=== PATIENT | female | born 1940 | race Two or more races ===

== ENCOUNTER → 2019-04-24 | Outpatient (CLI) | payer OTHER | END | disposition home or self-care (01) | LOC: RAD 13:57 | DX: M12.851 Other specific arthropathies, not elsewhere classified, right hip (principal); M12.852 Other specific arthropathies, not elsewhere classified, left hip; M12.88 Other specific arthropathies, not elsewhere classified, other specified site; M46.47 Discitis, unspecified, lumbosacral region ==

== ENCOUNTER 2019-05-02 12:16 | Outpatient (CLI) | payer OTHER | END 2019-05-02 15:28 | disposition home or self-care (01) | LOC: MRI 12:16 | DX: M46.47 Discitis, unspecified, lumbosacral region (principal) | CPT/HCPCS: 72148 ==

== ENCOUNTER 2024-10-21 08:59 | Outpatient (CLI) | payer OTHER | END 2024-10-21 09:02 | disposition home or self-care (01) | LOC: SONOGRAMA 08:59 | PROVIDERS: ATTEND Specialist | DX: M50.90 Cervical disc disorder, unspecified, unspecified cervical region (principal); I10 Essential (primary) hypertension; M17.10 Unilateral primary osteoarthritis, unspecified knee; M51.369 Other intervertebral disc degeneration, lumbar region without mention of lumbar back pain or lower extremity pain; M81.0 Age-related osteoporosis without current pathological fracture; M70.60 Trochanteric bursitis, unspecified hip; M76.00 Gluteal tendinitis, unspecified hip; M75.31 Calcific tendinitis of right shoulder; M75.51 Bursitis of right shoulder ==

== ENCOUNTER 2024-11-14 11:50 | Outpatient (CLI) | payer OTHER | END 2024-11-14 11:55 | disposition home or self-care (01) | LOC: TOM 11:50 | PROVIDERS: ATTEND Internal Medicine Cardiovascular Disease | DX: R51.9 Headache, unspecified (principal) ==